=== PATIENT | male | born 1995 | race Caucasian/White ===

== ENCOUNTER 2024-05-29 23:51 | Emergency (ER) | payer SELFPAY ==
[2024-05-30 00:06] VITALS: BP 145/102; PULSE 98; RESP 17; TEMP 97.8; BMI 49.0
== END 2024-05-30 04:01 | disposition left against medical advice (07) ==
LOC: JER 23:51
DX: R42 Dizziness and giddiness (principal); R51.9 Headache, unspecified
CPT/HCPCS: 93005; 93010; 99283-25